=== PATIENT | female | born 1950 | race Caucasian/White ===

== ENCOUNTER → 2020-05-18 | Outpatient (CLI) | payer OTHER, MEDICARE ==
[~2020-05-18] MED LIST: AMITRIPTYLINE H10 M1 PO; AMITRIPTYLINE H25 M2 PO; DUEXIS 800-26.1 EACH PO; EFFEXOR XR150 MG PO; FLEXERIL PO; FUROSEMIDE 20 M20 MG PO; HORIZANT600 MG PO; HYDROCODONE-AP1 EA11 PO; LEVO-T75 MCG PO; LORCET PLUS 7.1 EACH PO; LOSARTAN POTASS50 MG PO; METFORMIN HCL500 M3 PO; MOBIC15 MG PO; NAPROSYN500 MG PO; NORCO 5-325 TA1 EAC2 PO; OXYBUTYNIN 5 MG5 M2 PO; REQUIP 1 MG TABL1 M1 PO; REQUIP5 MG PO; ROBAXIN 750 MG750 MG PO; TOPAMAX 100 MG100 MG PO; TOPAMAX100 MG PO; TOPROL XL25 MG PO
== END ==
LOC: SJCVC 12:29
PROVIDERS: ATTEND Internal Medicine
DX: Z01.818 Encounter for other preprocedural examination (principal); I45.10 Unspecified right bundle-branch block; R94.31 Abnormal electrocardiogram [ECG] [EKG]; I10 Essential (primary) hypertension; E78.5 Hyperlipidemia, unspecified; E11.9 Type 2 diabetes mellitus without complications; F17.200 Nicotine dependence, unspecified, uncomplicated; F12.90 Cannabis use, unspecified, uncomplicated; Z79.84 Long term (current) use of oral hypoglycemic drugs; Z79.899 Other long term (current) drug therapy; Z72.89 Other problems related to lifestyle; Z72.0 Tobacco use

== ENCOUNTER → 2020-05-25 | Outpatient (CLI) | payer OTHER, MEDICARE | LOC: SJCVCIMAG 07:42 | PROVIDERS: ATTEND Internal Medicine | DX: Z01.810 Encounter for preprocedural cardiovascular examination (principal); R94.31 Abnormal electrocardiogram [ECG] [EKG]; I07.1 Rheumatic tricuspid insufficiency; E11.9 Type 2 diabetes mellitus without complications; I10 Essential (primary) hypertension; E78.5 Hyperlipidemia, unspecified; Z79.899 Other long term (current) drug therapy; E55.9 Vitamin D deficiency, unspecified; F41.9 Anxiety disorder, unspecified; M19.90 Unspecified osteoarthritis, unspecified site; F32.9 Major depressive disorder, single episode, unspecified; E03.9 Hypothyroidism, unspecified; F17.200 Nicotine dependence, unspecified, uncomplicated; Z72.89 Other problems related to lifestyle; Z79.84 Long term (current) use of oral hypoglycemic drugs ==